=== PATIENT | male | born 1960 | race Caucasian/White ===

== ENCOUNTER 2024-04-11 08:10 | Outpatient (CLI) | payer OTHER, SELFPAY ==
--- OUTSIDE RECORDS SUMMARY | 2024-04-12 09:14 | XMS_ITS | Clinical Summary ---
Author Organization [employer] [facility] Address [place], [place] [address] Care Team Providers Care Business Process Analyst Name Role Phone Nacho Veras MD Primary Care Provide r Allergies No known active allergies Medications Medication Sig Dispensed Refills Start Date End Date Status tamsulosin (FLOMAX) 0.4 mg capsule Take 0.4 mg by mouth once daily. Active HYDROcodone-acetam inophen (NORCO) 5-325 mg per tabletIndications: Benign prostatic hyperplasia with weak urinary stream Take 1 Tablet by mouth every 6 hours if needed for Pain. Max acetaminophen dose: 4000 mg in 24 hrs. 10 Tablet 12/15/2021 Active Immunizations Name Administration Dates Next Due COVID-19 vaccine (Moderna 100mcg/0.5mL) RENATE CAIN 10/07/2020 Influenza, IIV3 (Age >=3 years) 06/17/2009 Tdap 08/21/2007 Social History Tobacco Use Types Packs/Day Years Used Date Smoking Tobacco: Never Smokeless Tobacco: Never Tobacco Cessation:Counseling Given: No Comments:never Alcohol Use Standard Drinks/Week Comments Yes 0 (1 standard drink = 0.6 oz pur e alcohol) 1 per week-- week Sex and Gender Information Value Date Recorded Sex Assigned at Not on file Gender Identity Not on file Sexual Orientation Not on file Obstetrics History Last Filed Vital Signs Vital Sign Reading Time Taken Comments Blood Pressure 123/85 12/15/2021 3:00 PM CDT Pulse 58 12/15/2021 3:00 PM CDT Temperature 36.7 ??C (98 ??F) 12/15/2021 1:50 PM CDT Respiratory Rate 16 12/15/2021 3:00 PM CDT Oxygen Saturation 98% 12/15/2021 3:00 PM CDT Inhaled Oxygen Concentration - - Weight 96.2 kg (212 lb) 12/15/2021 10:55 AM CDT Height 185.7 cm (6' 1.11) 12/15/2021 10:55 AM C DT Body Mass Index 27.89 12/15/2021 10:55 AM CDT Plan of Treatment Health Maintenance Due Date Last Done Comments Depression screening for age 12+ 1974 HIV for age 15-65 1977 BMI (ht and wt on same day) for age 18+ 1980 Hepatitis C screening for age 18-79 1980 Lipids for age 45-75 2007 Zoster (shingles) series for age 50+ (1 of 2) 2012 Tetanus booster 08/21/2017 08/21/2007 COVID-19 vaccine series ( season) 2024 10/08/2021, 05/19/2021, 11/04/2020, Additional history exists Influenza for age 50-64 03/10/2024 06/17/2009 Colonoscopy through age 75 01/31/2028 01/30/2018 Tdap Completed 08/21/2007 Pneumococcal series for age 6-64 Aged Out No longer eligible based on patient's age to complete this topic Medical Devices Implanted Type Area Coding Compliance Manager Device Identifier Shelf Expiration Date Model / Serial / Lot Screw [employer] [place] 3.0x16mm - [id number] Implanted:Qty: 2 on 05/21/2013 by Clark Ramírez DPM at [facility] Right: [facility] 200-30-016 # / / K-Wire [id number] Part Thread - [id number] Implanted:Qty: 2 on 05/21/2013 by Clark Ramírez DPM at [facility] Right: [facility] Surgical [facility] --005 # / / K-Wire [id number] Part Thread - [id number] Implanted:Qty: 2 on 05/21/2013 by Clark Ramírez DPM at [facility] Right: [facility] Surgical [facility] - # / / Screw [employer] [place] 2.4x14mm - [id number] Implanted:Qty: 1 on 05/21/2013 by Clark Ramírez DPM at [facility] Right: [facility] 200-24-014 # / / Screw [employer] [place] 2.4x16mm - [id number] Implanted:Qty: 1 on 05/21/2013 by Clark Ramírez DPM at [facility] Right: [facility] 200-24-016 # / / K Wire .062x6 - [id number] Implanted:Qty: 2 on 05/21/2013 by Clark Ramírez DPM at [facility] Right: [employer] 1641-12-13 2# / / Wire K .054 X 18.0 Rnd End - [id number] Implanted:Qty: 1 on 05/21/2013 by Clark Ramírez DPM at [facility] Right: [employer] # / / K-Wire [id number] Part Thread - [id number] Implanted:Qty: 1 on 05/21/2013 by Clark Ramírez DPM at [facility] Right: [facility] -24-005 # / / Procedures Procedure Name Priority Date/Time Associated Diagnosis Comments COLONOSCOPY 01/30/2018 7:56 AM CDT from Last 3 Months or Most Recently Relevant to Health Maintenance Results * COLONOSCOPY (01/30/2018 7:56 AM CDT) 01/30/2018 7:56 AM CDT Narrative Transcriptions FromMarcos cunningham MD - 01/30/2018 8:30 AM CDT Patient Name: Uriel Singh Procedure Date: 01/30/2018 Gender: Male Date of : 1960 Admit Type: Ambulatory Procedure: Colonoscopy Proceduralist: Bill Byers [facility], Federico Zhou (Resident Care Supervisor) Indications/Pre-Op Diagnosis: Surveillance: Personal history ofadenomatous polyps on last colonoscopy 5 years ago Medications: Propofol per Anesthesia Procedure Description: The procedure, indications, potential complications, (bleeding, perforation, infection, adverse medication reaction, missed lesionsor polyps) and alternatives available were explained to the patient, who appeared to understand and indicated this. Opportunity for questionswas provided and informed consent obtained. The colonoscope was passed through the anus and advanced to thececum, identified by appendiceal orifice and ileocecal valve. Thecolonoscopy was performed with ease. The patient tolerated the procedure well.The quality of the bowel preparation was excellent. Complications: No immediate complications. Estimated Blood Loss & Specimen: Estimated blood loss was minimal. Specimen collected: Yes and sent to Laboratory Findings: The perianal and digital rectal examinations were normal. Pertinent negatives include normal sphincter tone. The terminal ileum appeared normal. A 4 mm polyp was found in the transverse colon. The polyp wassessile. The polyp was removed with a cold snare. Resection and retrieval were complete. A few small-mouthed diverticula were found in the sigmoid colon. The exam was otherwise without abnormality. No additional abnormalities were found on retroflexion. Impressions/Post-Op Diagnosis: - The examined portion of the ileum was normal. - One 4 mm polyp in the transverse colon, removed with a cold snare. Resected and retrieved. - Diverticulosis in the sigmoid colon. - The examination was otherwise normal. Recommendation: - Await pathology results. - Dr. Byers's office will contact you with biopsy/pathology results when available. Moderate Sedation: Deep sedation per anesthesia. Bill Billoctavio, 01/30/2018 8:29:54 AM This report has been signed electronically. Note Initiated On: 01/30/2018 7:56 AM Marcos Byers MD PROCEDURE ORD from Last 3 Months or Most Recently Relevant to Health Maintenance Advance Directives Documents on File Type Date Recorded Patient Director Of Billing Expl anation Healthcare Directive 09/21/2018 12:31 PM Brock SINGH * Full Code (Latest Code Status on File) Date Activated Date Inactivated Comments 12/15/2021 10:03 AM 12/15/2021 5:42 PM Question Answer Comments Code Status Discussion: Unable to Assess Preferences, Provider to review later * Full Code Date Activated Date Inactivated Comments 01/30/2018 6:56 AM 01/30/2018 3:25 PM * Full Code Date Activated Date Inactivated Comments 05/21/2013 8:31 AM 05/21/2013 5:46 PM * Full Code Date Activated Date Inactivated Comments 08/24/2012 6:05 AM 08/24/2012 11:53 AM Care Teams Business Process Analyst Relationship Specialty Start Date End Date Nacho Veras MD [address] [place] [address] PCP - General Family Practice 01/23/18
== END 2024-04-11 08:11 | disposition home or self-care (01) ==
LOC: NFLDREF 04-12 09:12
PROVIDERS: PCP Family Medicine; Referring Provider Family Medicine; Visit Provider Family Medicine
DX: E78.5 Hyperlipidemia, unspecified (principal); N40.0 Benign prostatic hyperplasia without lower urinary tract symptoms; R97.20 Elevated prostate specific antigen [PSA]; Z13.1 Encounter for screening for diabetes mellitus; Z12.5 Encounter for screening for malignant neoplasm of prostate
CPT/HCPCS: 80061; 82947; G0103

== ENCOUNTER 2024-04-17 07:55 | Outpatient (CLI) | payer OTHER, SELFPAY ==
--- OUTSIDE RECORDS SUMMARY | 2024-04-19 11:16 | XMS_ITS | Clinical Summary ---
Author Organization [employer] [facility] Address [place], [place] [address] Care Team Providers Care Campaign Management Specialist Name Role Phone Nacho Veras MD Primary [...] this topic Medical Devices Implanted Type Area Electronic Device Repairer Device Identifier Shelf Expiration Date Model / Serial / Lot Screw [employer] [place] 3.0x16mm - [id number] Implanted:Qty: 2 on 05/21/2013 by Clark Ramírez DPM at [facility] Right: [facility] 200-30-016 # / / K-Wire [id number] Part Thread - [id number] Implanted:Qty: 2 on 05/21/2013 by Clark Ramírez DPM at [facility] Right: [facility] [place] Surgical [facility] --005 # / / K-Wire [id number] Part Thread - [id number] Implanted:Qty: 2 on 05/21/2013 by Clark Ramírez DPM at [facility] Right: [facility] [place] Surgical [facility] - # / / Screw [employer] [place] 2.4x14mm - [id number] Implanted:Qty: 1 on 05/21/2013 by Clark Ramírez DPM at [facility] Right: [facility] 200-24-014 # / / Screw [employer] [place] 2.4x16mm - [id number] Implanted:Qty: 1 on 05/21/2013 by Clark Ramírez DPM at [facility] Right: [facility] 200-24-016 # / / K Wire .062x6 - [id number] Implanted:Qty: 2 on 05/21/2013 by Clark Ramírez DPM at [facility] Right: [employer] 1641-12-13 2# / / Wire K .054 X 18.0 Rnd End - [id number] Implanted:Qty: 1 on 05/21/2013 by Clark Ramírez DPM at [facility] Right: Foot [employer] # / / K-Wire [id number] Part Thread - [id number] Implanted:Qty: 1 on 05/21/2013 by Clark Ramírez DPM at [facility] Right: [facility] -24-005 # / / Procedures Procedure Name [...] Type: Ambulatory Procedure: Colonoscopy Proceduralist: Bill Byers [facility], Federico Zhou (Autocutter) Indications/Pre-Op Diagnosis: Surveillance: Personal history ofadenomatous polyps [...] Documents on File Type Date Recorded Patient Shower Room Attendant Expl anation Healthcare Directive 09/21/2018 12:31 PM [...] 6:05 AM 08/24/2012 11:53 AM Care Teams Campaign Management Specialist Relationship Specialty Start Date End Date Nacho Veras MD [address] [place] [address] PCP - General Family Practice 01/23/18
== END 2024-04-17 07:56 | disposition home or self-care (01) ==
LOC: NFLDREF 04-19 11:14
PROVIDERS: PCP Family Medicine; Referring Provider Family Medicine; Visit Provider Family Medicine
DX: R73.09 Other abnormal glucose (principal); Z13.1 Encounter for screening for diabetes mellitus; Z13.6 Encounter for screening for cardiovascular disorders
CPT/HCPCS: 80061; 82947

== ENCOUNTER 2024-05-06 07:09 | Outpatient (CLI) | payer OTHER, SELFPAY ==
--- OUTSIDE RECORDS SUMMARY | 2024-05-06 07:10 | XMS_ITS | Clinical Summary ---
Author Organization [employer] [facility] Address [place], [place] [address] Care Team Providers Care Maori Physiotherapist Name Role Phone Nacho Veras MD Primary [...] this topic Medical Devices Implanted Type Area Online Content Editor Device Identifier Shelf Expiration Date Model / Serial / Lot Screw [employer] [place] 3.0x16mm - [id number] Implanted:Qty: 2 on 05/21/2013 by Clark Ramírez DPM at [facility] Right: [facility] 200-30-016 # / / K-Wire [id number] Part Thread - [id number] Implanted:Qty: 2 on 05/21/2013 by Clark Ramírez DPM at [facility] Right: [facility] Surgical [facility] --005 # / / K-Wire [id number] Part Thread - [id number] Implanted:Qty: 2 on 05/21/2013 by Clark Ramírez DPM at [facility] Right: [facility] Surgical [facility] - # / / Screw [employer] [place] 2.4x14mm - [id number] Implanted:Qty: 1 on 05/21/2013 by Clark Ramírez DPM at [facility] Right: [facility] 200-24-014 # / / Screw [employer] [place] 2.4x16mm - [id number] Implanted:Qty: 1 on 05/21/2013 by Clark Ramírez DPM at [facility] Right: [facility] 200-24-016 # / / K Wire .062x6 - [id number] Implanted:Qty: 2 on 05/21/2013 by Clark Ramírez DPM at [facility] Right: [employer] 1641-12-13 2# / / Wire K .054 X 18.0 Rnd End - [id number] Implanted:Qty: 1 on 05/21/2013 by Clark Ramírez DPM at [facility] Right: [employer] # / / K-Wire [id number] Part Thread - [id number] Implanted:Qty: 1 on 05/21/2013 by Clark Ramírez DPM at [facility] Right: [facility] -24-005 # / / Procedures Procedure [...] Type: Ambulatory Procedure: Colonoscopy Proceduralist: Bill Byers [facility], Federico Zhou (Site Coordinator) Indications/Pre-Op Diagnosis: Surveillance: Personal history ofadenomatous polyps [...] Documents on File Type Date Recorded Patient Cardiac Monitor Technician Expl anation Healthcare Directive 09/21/2018 12:31 PM [...] 6:05 AM 08/24/2012 11:53 AM Care Teams Maori Physiotherapist Relationship Specialty Start Date End Date Nacho Veras MD [address] [place] [address] PCP - General Family Practice 01/23/18
--- NOTE | 2024-05-06 09:12 | W.ANESCHARGE ---
Anesthesia Charges Start Date/Time Anesthesia Start Date: 05/06/24 Anesthesia Start Time: 08:33 Stop Date/Time Anesthesia Stop Date: 05/06/24 Anesthesia Stop Time: 09:11
--- NOTE | 2024-05-06 09:36 | W.ANESCHARGE ---
Anesthesia Charges Start Date/Time Anesthesia Start Date: 05/06/24 Anesthesia Start Time: 08:33 Stop Date/Time Anesthesia Stop Date: 05/06/24 Anesthesia Stop Time: 09:11
== END 2024-05-06 07:10 | disposition home or self-care (01) ==
LOC: OP CLINIC 07:09
PROVIDERS: PCP Family Medicine; Visit Provider Surgery
DX: Z12.11 Encounter for screening for malignant neoplasm of colon (principal); D12.2 Benign neoplasm of ascending colon; D12.3 Benign neoplasm of transverse colon; K64.8 Other hemorrhoids; Z86.0100 Personal history of colon polyps, unspecified
CPT/HCPCS: 00811; 00812; 45385; 88305; J2704

== ENCOUNTER 2024-08-13 07:55 | Outpatient (CLI) | payer OTHER, SELFPAY | END 2024-08-13 07:56 | disposition home or self-care (01) | LOC: NFLDREF 08-14 08:45 | PROVIDERS: PCP Family Medicine; Referring Provider Family Medicine; Visit Provider Family Medicine | DX: E78.5 Hyperlipidemia, unspecified (principal) | CPT/HCPCS: 80061; 84450; 84460 ==

== ENCOUNTER 2024-11-18 07:32 | Outpatient (CLI) | payer OTHER, SELFPAY | END 2024-11-18 07:33 | disposition home or self-care (01) | LOC: NFLDREF 11-23 19:30 | PROVIDERS: PCP Family Medicine; Referring Provider Family Medicine; Visit Provider Family Medicine | DX: E78.5 Hyperlipidemia, unspecified (principal) | CPT/HCPCS: 80061; 84450; 84460 ==

== ENCOUNTER 2025-04-14 07:47 | Outpatient (CLI) | payer OTHER, SELFPAY | END 2025-04-14 07:48 | disposition home or self-care (01) | LOC: NFLDREF 04-27 03:54 | PROVIDERS: PCP Family Medicine; Referring Provider Family Medicine; Visit Provider Family Medicine | DX: R73.09 Other abnormal glucose (principal); Z13.1 Encounter for screening for diabetes mellitus; Z13.6 Encounter for screening for cardiovascular disorders | CPT/HCPCS: 80061; 82947; G0103 ==